=== PATIENT | male | born 1975 | race Caucasian/White ===

== ENCOUNTER 2020-03-06 23:21 | Emergency (ER) | payer OTHER ==
[~2020-03-06] VITALS: Ht 188 cm; Wt 77.1 kg
--- NOTE | 2020-03-06 23:29 | Emergency Room Report ---
History of Present Illness General Chief Complaint: chest pain Source: Patient, EMS Present Illness HPI Patient is a 44-year-old male presents for increased chest pain for the past 4 days. Had increased cough. Patient had prior history of substance abuse. Had recent hospitalization at [facility] where he was hospitalized for approximately 1 month after increased problems.Patient had negative coronavirus testing to this point. Had been previously diagnosed with end-stage renal disease and is on dialysis and was last dialyzed yesterday. Saturday schedule. Has a Christofer catheter to the right side of his chest. Denies any fever. Intermittently productive cough.Reports currently being on antibiotics and having intermittent diarrhea episodes since approxi-1 month. 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 COVID-19 Screening: Negative COVID-19 Patient History Past Medical History: see triage record Reviewed Nursing Documentation: PMH: Agreed; PSxH: Agreed Review of Systems Constitutional: Reports: no symptoms Eye: Reports: no symptoms ENT: Reports: no symptoms Respiratory: Reports: cough, shortness of breath Cardiovascular: Reports: chest pain, edema Gastrointestinal: Reports: diarrhea Genitourinary: Reports: no symptoms Musculoskeletal: Reports: joint pain Skin: Reports: no symptoms Psychiatric: Reports: no symptoms Neurological: Reports: no symptoms Endocrine: Reports: no symptoms Hematologic/Lymphatic: Reports: no symptoms Allergic: Reports: no symptoms Physical Exam Sp02 EP Interpretation: reviewed, normal General Appearance: normal inspection, alert, GCS 15, mild distress, Chronically Ill Head: atraumatic ENT: normal ENT inspection, hearing grossly normal, normal voice Neck: normal inspection, full range of motion, supple, no bony tend Respiratory: normal inspection, no retraction, wheezing Cardiovascular #1: regular rate, rhythm, no edema Gastrointestinal: normal inspection, normal bowel sounds, non tender, soft, no guarding, no hernia Genitourinary: no CVA tenderness Musculoskeletal: normal inspection, back normal, normal range of motion Neurologic: alert, motor strength/tone normal, 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, oriented x3, responsive, speech normal, normal inspection Psychiatric: normal inspection, judgement/insight normal, mood/affect normal Skin: no rash Procedures Central Line Central Line : Consent: Emergent Central Line Lumen: triple Maximal Sterile Barrier Tech: yes cap, yes mask, yes sterile gown, yes sterile gloves, yes large sterile sheet, yes hand hygiene, yes chlorhexidine prep No Max Barrier Tech Because: emergency insertion Central Line Postion: internal jugular (L) Anesthesia: Lidocaine cc's of anesthesia: 5 US Guided Line?: Yes Vessel visualized with U/S: Left Internal Jugular Ultrasound Findings: Collapsible Vessel Complications: none Central Line Post Position: sutured, good blood return Attempts: One Patient Tolerated: Well Complications: None Medical Decision Making Diagnostic Impression: Primary Impression: Chest pain Additional Impressions: ESRD (end stage renal disease) Opiate addiction Anxiety Bilateral pleural effusion Anemia ER Course Patient presented for chest pain. Differential diagnosis included but was not limited to acute coronary syndrome, coronavirus infection, pulmonary embolism, pneumonia, aortic dissection, shingles, pneumothorax, aortic dissection, esophageal rupture, pericarditis. Because of complexity of patient's case laboratory tests and imaging studies were ordered. EKG showed normal sinus rhythm with a rate of [address] changes. There is lateral T wave inversion noted. CXR showed bilateral small effusions with questionable infiltrate. Cardiac size appeared to be normal. Arterial blood gas showed slight metabolic acidosis with adequate oxygen saturation on supplemental oxygen. Patient was noted to have prior history of IV drug use and had extremely poor IV access. Patient was actively having chest pain central venous catheter was placed in the left internal jugular under ultrasound guidance. Patient agreed to procedure after informed consent was obtained. And was cooperative. Post procedure chest x-ray showed adequate central line placement patient was maintained on supplemental oxygen. With slight cardiomegaly. See radiology report for full details. Coronavirus testing was negative. Central venous access was in good position. Patient was given breathing treatment. Patient was given IV antibiotics. He appears to be somewhat fluid overloaded and was therefore not given IV fluid. He was given aspirin. Patient be hospitalized for further treatment of pleural effusions and further work-up of chest pain. Patient was discussed with Dr. Ragland who agreed to accept the patient as keller sfer to [facility]. Patient currently stable for transfer. Labs Test 03/06/20 23:37 03/06/20 23:45 Arterial Blood pH 7.331 (7.350-7.450) Arterial Blood Partial Pressure CO2 43.9 mmHg (35.0-45.0) Arterial Blood Partial Pressure O2 69.5 mmHg (75.0-100.0) Arterial Blood HCO3 22.7 mmol/L (22.0-26.0) Arterial Blood Oxygen Saturation 91.6 % (95-100) Arterial Blood Base Excess -3.1 (-2-2) Suresh Test Positive White Blood Count 14.3 K/UL (4.8-10.8) Red Blood Count 2.77 M/UL (4.70-6.10) Hemoglobin 8.1 G/DL (14.2-18.0) Hematocrit 25.3 % (42.0-52.0) Mean Corpuscular Volume 91 FL (80-99) Mean Corpuscular Hemoglobin 29.3 PG (27.0-31.0) Mean Corpuscular Hemoglobin Concent 32.1 G/DL (32.0-36.0) Red Cell Distribution Width 17.4 % (11.6-14.8) Platelet Count 205 K/UL (150-450) Mean Platelet Volume 6.4 FL (6.5-10.1) Neutrophils (%) (Auto) 72.2 % (45.0-75.0) Lymphocytes (%) (Auto) 14.9 % (20.0-45.0) Monocytes (%) (Auto) 8.7 % (1.0-10.0) Eosinophils (%) (Auto) 3.8 % (0.0-3.0) Basophils (%) (Auto) 0.5 % (0.0-2.0) Sodium Level 138 MMOL/L (136-145) Potassium Level 5.0 MMOL/L (3.5-5.1) Chloride Level 99 MMOL/L (98-107) Carbon Dioxide Level 25 MMOL/L (21-32) Anion Gap 14 mmol/L (5-15) Blood Urea Nitrogen 70 mg/dL (7-18) Creatinine 9.2 MG/DL (0.55-1.30) Estimat Glomerular Filtration Rate 6.2 mL/min (>60) Glucose Level 133 MG/DL (74-106) Calcium Level 8.1 MG/DL (8.5-10.1) EKG Diagnostic Results Rate: normal Rhythm: NSR ST Segments: no acute changes Status: unchanged Disposition: SHORT-TERM HOSP Condition: Serious Rian Morley MD Mar 06, 2020 23:29
[2020-03-06] MEDS ORDERED: ATORVASTATIN CA20 MG ORAL (23:32)
[2020-03-06] MEDS ORDERED: PANTOPRAZOLE SO40 MG ORAL (23:32)
[2020-03-06] MEDS ORDERED: NEPHROVITE1 TAB ORAL (23:32)
[2020-03-06] MEDS ORDERED: HYDRALAZINE HCL25 M1 ORAL (23:32)
[2020-03-06] MEDS ORDERED: NORCO 5-325 TA1 EAC1 ORAL (23:32)
[2020-03-06] MEDS ORDERED: KLONOPIN0.5 MG ORAL (23:32)
[2020-03-06] MEDS ORDERED: METOPROLOL SUCC50 MG ORAL (23:32)
[2020-03-06] MEDS ORDERED: LEVOTHYROXINE100 MC1 IV (23:32)
[2020-03-06] MEDS ORDERED: Albuterol/Ipratropium 3ml neb HHN ONE (23:45)
--- NOTE | 2020-03-07 00:09 | Diagnostic Imaging Report ---
EXAM: XR Chest, 1 View CLINICAL HISTORY: SOB TECHNIQUE: Frontal view of the chest. COMPARISON: No relevant prior studies available. FINDINGS: Lungs: Retrocardiac and right base atelectasis without or with consolidation. Low lung volumes with bronchovascular crowding. Pleural space: Bilateral pleural effusions, moderate right and small left. No pneumothorax. Heart: Probable cardiomegaly somewhat obscured due to right base opacity. Mediastinum: Unremarkable. Bones/joints: No acute abnormality Tubes, lines and devices: Right IJ approach tunneled dual-lumen central venous catheter with tip in the region of the right atrium. IMPRESSION: 1. Right IJ approach tunneled dual-lumen central venous catheter with tip in the region of the right atrium. 2. Bilateral pleural effusions, moderate right and small left. 3. Retrocardiac and right base atelectasis without or with consolidation. 4. Probable cardiomegaly somewhat obscured due to right base opacity. 5. Low lung volumes with bronchovascular crowding. 6. If there is further concern, recommend CT.
[2020-03-07] MEDS ORDERED: Lidocaine 1% Plain 30 ml INJ ONE (00:16)
[2020-03-07 00:35] VITALS: BP 141/82
--- NOTE | 2020-03-07 00:39 | NUR ---
ED Nurse Note: Patient brought in by ambulance [id number] from [facility] d/t chest pain and cough for 4 days. Patient reports sternal chest pain 10/10 pressure and aching accompanied by SOB. Patient aao x 4 and ambulatory but weak during assessment. Patient has a dialysis shunt on right upper chest, last dialysis day was yesterday, he has dialysis TThS. 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 Unable to get an IV start attempted by 3 RNs, Dr. Morley aware and established left IJ triple lumen cath, blood collected and sent to lab.
[2020-03-07] MEDS ORDERED: Solu-MEDROL 125mg Inj IVP ONE (00:45)
[2020-03-07] MEDS ORDERED: guaiFENesin /DM 10ml syrup ORAL ONE (00:45)
[2020-03-07] MEDS ORDERED: Cefepime HCl 1 GM in D5W 55 ML IVPB ONE (00:45)
[2020-03-07] MEDS ORDERED: Aspirin Baby 81mg ORAL ONE (00:45)
[2020-03-07] MEDS ORDERED: Vancomycin 1 GM in NS 275 ML IVPB ONE (00:45)
[2020-03-07 00:46] LABS: BASOPHILS % (AUTO) 0.5 % (0.0-2.0); EOSINOPHILS % (AUTO) 3.8 % (0.0-3.0); HEMATOCRIT 25.3 % (42.0-52.0); HEMOGLOBIN 8.1 G/DL (14.2-18.0); LYMPHOCYTES % (AUTO) 14.9 % (20.0-45.0); MEAN CORPUSCULAR VOLUME 91 FL (80-99); MONOCYTES % (AUTO) 8.7 % (1.0-10.0); NEUTROPHILS % (AUTO) 72.2 % (45.0-75.0); PLATELET COUNT 205 K/UL (150-450); RED BLOOD COUNT 2.77 M/UL (4.70-6.10); RED CELL DISTRIBUTION WIDTH 17.4 % (11.6-14.8); WHITE BLOOD COUNT 14.3 K/UL (4.8-10.8)
--- NOTE | 2020-03-07 00:53 | Diagnostic Imaging Report ---
ADDENDUM - Added by Sathish Mcduffie MD on 03/07/2020 1:03 AM (-07:00) Addendum: 1. There is a dictation error in the original report. 2. There is a new left IJ approach central venous catheter, tip in the mid SVC. 3. There is no right-sided IJ line. 4. Remainder of the report is unchanged. EXAM: XR Chest, 1 View CLINICAL HISTORY: LINE TECHNIQUE: Frontal view of the chest. COMPARISON: 03/06/2020 at 2349 hrs. FINDINGS: Lungs: Unchanged retrocardiac and right base atelectasis with consolidation. Low lung volumes with bronchovascular crowding. Pleural space: Unchanged bilateral moderate right and small left pleural effusions. No pneumothorax. Heart: Unchanged cardiomegaly, somewhat obscured due to right base opacity. Mediastinum: Unremarkable. Bones/joints: No acute abnormality Tubes, lines and devices: New right IJ approach central venous catheter with tip in the region of the mid SVC. Unchanged right IJ tunneled dual-lumen catheter, tip in the right atrium. IMPRESSION: 1. New right IJ approach central venous catheter with tip in the region of the mid SVC. 2. Unchanged right IJ tunneled dual-lumen catheter, tip in the right atrium. 3. Unchanged bilateral moderate right and small left pleural effusions. 4. Unchanged retrocardiac and right base atelectasis with consolidation. 5. Unchanged cardiomegaly, somewhat obscured due to right base opacity. 6. Low lung volumes with bronchovascular crowding.
[2020-03-07 00:57] LABS: ANION GAP 14 mmol/L (5-15); BLOOD UREA NITROGEN 70 mg/dL (7-18); CALCIUM 8.1 MG/DL (8.5-10.1); CARBON DIOXIDE 25 MMOL/L (21-32); CHLORIDE 99 MMOL/L (98-107); CREATININE 9.2 MG/DL (0.55-1.30); SODIUM 138 MMOL/L (136-145)
[2020-03-07] MEDS ORDERED: HYDROcodone/Acetamin 5/325 tab ORAL ONE (01:00)
[2020-03-07 01:10] LABS: ALANINE AMINOTRANSFERASE 255 U/L (12-78); ALBUMIN 2.2 G/DL (3.4-5.0); ALBUMIN/GLOBULIN RATIO 0.5 (1.0-2.7); ALKALINE PHOSPHATASE 219 U/L (46-116); ASPARTATE AMINO TRANSFERASE 33 U/L (15-37); BILIRUBIN,TOTAL 0.6 MG/DL (0.2-1.0); CKMB 2.9 NG/ML (0.0-3.6); CREATINE KINASE 95 U/L (26-308); PHOSPHORUS 12.5 MG/DL (2.5-4.9)
[2020-03-07] MEDS ORDERED: Nitroglycerin 2% oint pkt TOPIC ONE (01:15)
[2020-03-07] MEDS ORDERED: Vancomycin 1gm vial IVPB ONE (01:24)
--- NOTE | 2020-03-07 02:29 | NUR ---
ED Nurse Note: Report given to DOROTHY Dhillon at [facility].
--- NOTE | 2020-03-07 02:30 | NUR ---
ED Nurse Note: Patient resting in bed sleeping, no acute distress noted, no pain observed.
[2020-03-07 02:50] VITALS: BP 104/69
--- NOTE | 2020-03-07 02:50 | NUR ---
ER DISCHARGE NOTE: Patient is cleared to be transferred to [facility] per ERMD. Report given to DOROTHY Dhillon. Patient transported via gurney with [facility] Unit[facility][id number]. Patient aao x 4 and ambulatory upon departure. All patient belongings taken by ambulance personnel. Patient stable upon departure.
--- NOTE | 2020-03-09 20:54 | Cardiology Report ---
APPROVED REPORT EKG Measurement Heart [id number] <Conclusion> Normal sinus rhythm Nonspecific T wave abnormality Abnormal ECG
== END 2020-03-07 02:50 | disposition short-term general hospital (02) ==
LOC: EDBD 23:21 → EMR 23:43
DX: R07.9 Chest pain, unspecified (principal); J98.11 Atelectasis
CPT/HCPCS: 36415; 36558; 71045; 80053; 82550; 82553; 82803; 83605; 83690; 83735; 83880; 84100; 84484; 85025; 85379; 85610; 85730; 86710; 86850; 86900; 86901; 87040; 93005; 94640; 96365; 96368; 96375; J0692; J2001; J2930; J3370; J7050; U0002; Z7502; 99285; J7620